=== PATIENT | female | born 1960 | race Caucasian/White ===

== ENCOUNTER 2017-04-03 14:29 | Emergency (ER) | payer OTHER ==
[~2017-04-03] VITALS: Ht 160 cm; Wt 90.7 kg
--- OUTSIDE RECORDS SUMMARY | ~2017-04-03 | XMS ---
Demographics + + + | Address | [address] | | | [place] [address] | + + + | Preferred Language | Unknown | + + + | Marital Status | Unknown | + + + | Moravian Affiliation | Unknown | + + + | Race | Unknown | + + + | Ethnic Group | Unknown | + + + Author + + + | Author | [facility] | + + + | Organization | [facility] | + + + | Address | [address] | | | [place] [address] | + + + | Phone | | + + + Care Team Providers + + + + | Care Carpet Loom Fixer Name | Role | Phone | + + + + Unavailable | Unavailable | + + + + PROBLEMS + + + + + + + + | Type | Condition | ICD9-CM | [id number] | Onset | Condition | SNOMED | | | | Code | Code | Dates | Status | Code | + + + + + + + + | Assessment | COPD | | J44.9 | 02 October, | Active | [id number] | | | (chronic | | | 2016 | | | | | obstructiv | | | | | | | | e | | | | | | | | pulmonary | | | | | | | | disease) | | | | | | + + + + + + + + | Assessment | DDD | | M51.36 | 02 October, | Active | [id number] | | | (degenerat | | | 2016 | | | | | edis disc | | | | | | | | disease), | | | | | | | | lumbar | | | | | | + + + + + + + + ALLERGIES + + + + +--------+ | Substance | Reaction | Event Type | Date | Status | + + + + +--------+ | codine | hallucinations, | Non Drug | September, | Active | | | hives | Allergy | | | + + + + +--------+ | vicodin | hives and | Non Drug | September, | Active | | | vomiting | Allergy | | | + + + + +--------+ SOCIAL HISTORY No smoking Hx information available PLAN OF CARE VITAL SIGNS + + + + | Height | 64.5 in | 2016-10-02 | + + + + | Weight | 212.0 lbs | 2016-10-02 | + + + + | BMI | 35.82 kg/m2 | 2016-10-02 | + + + + | Heart Rate | 98 /min | 2016-10-02 | + + + + | Blood pressure systolic | 186 mm Hg | 2016-10-02 | + + + + | Blood pressure diastolic | 105 mm Hg | 2016-10-02 | + + + + MEDICATIONS + + + + + + + +--------+ | Medicati | Instruct | Dosage | Frequenc | Start | End Date | Duration | Status | | on | ions | | y | Date | | | | + + + + + + + +--------+ | Albutero | Inhalati | 1-2 | | 07 May, | | 30 | Active | | l | on every | puffs as | | 2012 | | | | | Sulfate | 4-6 hrs | needed | | | | | | | HFA 108 | | | | | | | | | (90 | | | | | | | | | Base) | | | | | | | | | MCG/ACT | | | | | | | | + + + + + + + +--------+ | Flexeril | Orally | 1 tablet | 8h | | | 30 | Active | | 10MG | Three | | | | | | | | | times a | | | | | | | | | day | | | | | | | + + + + + + + +--------+ | Clonidin | | TAKE ONE | | | | 30 | Active | | e HCl | | TABLET | | | | | | | 0.2MG | | BY MOUTH | | | | | | | | | ONCE | | | | | | | | | DAILY AT | | | | | | | | | BEDTIME | | | | | | | | | FOR 30 | | | | | | | | | DAYS | | | | | | + + + + + + + +--------+ | Hyzaar | Orally | 1 tablet | 24h | | | 30 days | Active | | 100-25 | once a | | | | | | | | MG | day | | | | | | | + + + + + + + +--------+ | Motrin | Orally | 2-3 | | | | | Active | | IB 200 | Prn | tablets | | | | | | | MG | | | | | | | | + + + + + + + +--------+ | Ventolin | | INHALE | | | | 30 | Active | | HFA | | TWO | | | | | | | 108MCG/A | | PUFFS BY | | | | | | | | | MOUTH | | | | | | | | | EVERY 4 | | | | | | | | | HOURS | | | | | | | | | NEEDED | | | | | | + + + + + + + +--------+ | Losartan | | TAKE ONE | | | | 30 | Active | | | | TABLET | | | | | | | Potassiu | | BY MOUTH | | | | | | | m-HCTZ | | ONCE | | | | | | | 100-25 | | DAILY | | | | | | + + + + + + + +--------+ | Mobic 15 | Orally | 1 tablet | 24h | 17 September, | 13 Nov, | 30 | Active | | MG | Once a | | | 2017 | 2017 | day(s) | | | | day | | | | | | | + + + + + + + +--------+ | Albutero | | USE 0.5 | | | | 20 | Active | | l | | ML'S IN | | | | | | | Sulfate | | NEBULIZE | | | | | | | 0.5% | | R EVERY | | | | | | | | | 4 HOURS | | | | | | | | | | | | | | | | | | NEEDED | | | | | | + + + + + + + +--------+ | GlyBURID | | TAKE TWO | | | | 30 | Active | | E 5MG | | TABLETS | | | | | | | | | BY | | | | | | | | | MOUTH | | | | | | | | | TWICE | | | | | | | | | DAILY | | | | | | + + + + + + + +--------+ | OneTouch | | USE ONE | | | | 30 | Active | | Ultra | | EVERY | | | | | | | Blue | | DAY | | | | | | + + + + + + + +--------+ | OneTouch | | as | 24h | 11 Jul, | | 30 | Active | | Delica | | directed | | 2015 | | day(s) | | | Lancets | | | | | | | | | . | | | | | | | | + + + + + + + +--------+ RESULTS No Results PROCEDURES + + + + + | Procedure | Date Ordered | Related Diagnosis | Body Site | + + + + + | Est Level III | October 02, 2016 | | | | Intermediate | | | | + + + + + IMMUNIZATIONS No Known Immunizations"
--- OUTSIDE RECORDS SUMMARY | ~2017-04-03 | XMS ---
Demographics + + + | Address | [address] | | | [place] [address] | + + + | Preferred Language | Unknown | + + + | Marital Status | Unknown | + + + | Hinduism Affiliation | Unknown | + + + | Race | Unknown | + + + | Ethnic Group | Unknown | + + + Author + + + | Author | [facility] | + + + | Organization | [facility] | + + + | Address | [address] | | | [place] [address] | + + + | Phone | | + + + Care Team Providers + + + + | Care Line Maintainer Section Name | Role | Phone | + + + + Unavailable | Unavailable | + + + + PROBLEMS Unknown Problems ALLERGIES Unknown Allergies SOCIAL HISTORY No smoking Hx information available PLAN OF CARE VITAL SIGNS MEDICATIONS Unknown Medications RESULTS No Results PROCEDURES No Known procedures IMMUNIZATIONS No Known Immunizations"
--- OUTSIDE RECORDS SUMMARY | ~2017-04-03 | XMS ---
Demographics + + + | Address | [address] | | | [place] [address] | + + + | Preferred Language | Unknown | + + + | Marital Status | Unknown | + + + | Anabaptism Affiliation | Unknown | + + + | Race | Unknown | + + + | Ethnic Group | Unknown | + + + Author + + + | Author | [facility] | + + + | Organization | [facility] | + + + | Address | [address] | | | [place] [address] | + + + | Phone | | + + + Care Team Providers + + + + | Care Principal Network Engineer Name | Role | Phone | + + + + Unavailable | Unavailable | + + + + PROBLEMS Unknown Problems ALLERGIES Unknown Allergies SOCIAL HISTORY No smoking Hx information available PLAN OF CARE VITAL SIGNS MEDICATIONS Unknown Medications RESULTS No Results PROCEDURES No Known procedures IMMUNIZATIONS No Known Immunizations"
[~2017-04-03 14:29] MED LIST: ADVAIR 100-501 EACH IH; AEROECLIPSE II1 EACH MC; ALBUTEROL S5 MG/1 ML INH; CLONIDINE HCL0.1 MG PO; COZAAR50 MG; CYCLOBENZAPRINE10 MG; GLYBURIDE2.5 MG; IBUPROFEN400 MG PO; PERCOCET 5-3251 EACH PO; PREDNISONE10 MG PO; VENTOLIN HFA18 GM
[2017-04-03] MEDS ORDERED: MELOXICAM7.5 MG PO (14:51)
[2017-04-03] MEDS ORDERED: KETOROLAC TROME10 MG PO (15:00)
[2017-04-03] MEDS ORDERED: KEFLEX500 MG PO (15:00)
[2017-04-03] MEDS ORDERED: AMBIEN10 MG PO (15:05)
== END 2017-04-03 15:20 | disposition home or self-care (01) ==
LOC: ED 14:29
DX: E11.621 Type 2 diabetes mellitus with foot ulcer (principal); L97.519 Non-pressure chronic ulcer of other part of right foot with unspecified severity; M54.30 Sciatica, unspecified side; I10 Essential (primary) hypertension; Z87.891 Personal history of nicotine dependence; Z98.51 Tubal ligation status; Z88.5 Allergy status to narcotic agent; Z79.899 Other long term (current) drug therapy
CPT/HCPCS: 99283

== ENCOUNTER 2024-09-29 20:46 | Emergency (ER) | payer OTHER | END 2024-09-30 01:08 | disposition home or self-care (01) | LOC: ED 20:46 | DX: N39.0 Urinary tract infection, site not specified (principal); I10 Essential (primary) hypertension; E11.9 Type 2 diabetes mellitus without complications; Z79.899 Other long term (current) drug therapy; Z88.5 Allergy status to narcotic agent; Z88.1 Allergy status to other antibiotic agents; Z87.891 Personal history of nicotine dependence ==

== ENCOUNTER 2024-11-14 14:00 | Inpatient (IN) | payer OTHER ==
[~2024-11-14] VITALS: Ht 160 cm; Wt 102.0 kg
[~2024-11-14 14:00] MED LIST changes: +ADVIL200 MG PO; +AMBIEN10 MG PO; +CEPHALEXIN500 M1 PO; -CYCLOBENZAPRINE10 MG; +CYCLOBENZAPRINE10 MG PO; -IBUPROFEN400 MG PO; +KEFLEX500 MG PO; +KETOROLAC TROME10 MG PO; +MELOXICAM7.5 MG PO; -VENTOLIN HFA18 GM; +VENTOLIN HFA18 GM INH
[2024-11-14 14:45] LABS: BASOPHILS 0.6 % (0.1-1.2); EOSINOPHILS 1.7 % (0.7-5.8); LYMPHOCYTES 15.3 % (19.3-51.7); MCH 33.9 PG (25.6-32.2); MCHC 34.5 g/dL (32.2-35.5); MCV 98.1 fL (79.4-94.8); MONOCYTES 8.7 % (4.7-12.5); NEUTROPHILS 73.5 % (34.0-71.1); RBC 3.72 M/uL (3.93-5.22)
[2024-11-14 15:03] LABS: ALT (SGPT) 79.0 U/L (14-59); AST (SGOT) 183.0 U/L (15-37); GLOMERULAR FILTRATION RATE,EST 63.0 mL/min (>60); PROTEIN, TOTAL 8.4 g/dL (6.4-8.2); UREA NITROGEN 9.0 mg/dL (7-18)
[2024-11-14 17:10] LABS: INR 1.07 (0.80-1.30); PROTIME 13.5 Sec (11.2-14.2)
[2024-11-14] MEDS ORDERED: IBUPROFEN 600 MG TAB PO ONE (17:15)
[2024-11-14] MEDS ORDERED: HYDROmorphone HCL 1 MG/ML SYR IV ONE (17:45)
[2024-11-14] MEDS ORDERED: LABETALOL HCL 20 MG/4 ML VIAL IV PRN (18:00)
[2024-11-14] MEDS ORDERED: DEXTROSE 50% 50 ML SYR IV PRN ×2 (18:00)
[2024-11-14] MEDS ORDERED: CYCLOBENZAPRINE HCL 10 MG TAB PO PRN (18:00)
[2024-11-14] MEDS ORDERED: DEXTROSE 5% 1,000 ML IV PRN (18:00)
[2024-11-14] MEDS ORDERED: ACETAMINOPHEN 325 MG TAB PO PRN (18:00)
[2024-11-14] MEDS ORDERED: GLUCAGON,HUMAN RECOMBINANT 1 MG/ML VIAL SUB-Q PRN (18:00)
[2024-11-14] MEDS ORDERED: IBLOOD GLUCOSE TEST STRIP 1 EA TEST XX PRN (18:00)
[2024-11-14] MEDS ORDERED: ALBUTEROL SULFATE 0.083% 3 ML VIAL INH PRN (18:00)
[2024-11-14 18:42] LABS: BLOOD/HGB, URINE NEGATIVE (Negative); KETONE, URINE SMALL (Negative); LEUK ESTERASE, URINE NEGATIVE (negative); NITRITE, URINE NEGATIVE (negative)
[2024-11-14 18:56] LABS: AMPHETAMINES, URINE NEGATIVE (NEGATIVE); BARBITURATES, URINE NEGATIVE (NEGATIVE); BENZODIAZEPINE, URINE NEGATIVE (NEGATIVE); CANNABINOID, URINE POSITIVE (NEGATIVE); COCAINE, URINE NEGATIVE (NEGATIVE); ECSTASY, URINE NEGATIVE (NEGATIVE); FENTANYL, URINE NEGATIVE (NEGATIVE); METHADONE, URINE NEGATIVE (NEGATIVE); OPIATES, URINE NEGATIVE (NEGATIVE); OXYCODONE, URINE NEGATIVE (NEGATIVE); PHENCYCLIDINE, URINE NEGATIVE (NEGATIVE)
[2024-11-14 18:58] VITALS: BP 166/79
[2024-11-14 19:03] LABS: BACTERIA, URINE RARE /hpf (negative); CASTS, URINE HYALINE 1+ \\lpf; CRYSTALS, URINE NONE SEEN (0-1+); EPITHELIAL CELLS, URINE SQUAMOUS 3+ /lpf (0-1+); REFLEX CULTURE, URINE No (No)
[2024-11-14] MEDS ORDERED: FOLIC ACID 1 MG/0.2 ML ML IV SCH (19:32)
--- NOTE | 2024-11-14 19:33 | NUR ---
ALERT AND ORIENTED TO ALL, COOPERATIVE WITH ADMIT QUESTIONS AND ASSESSMENTS. ABD DISTENTION ASCITIC FIRM, DENITA, LBM 11/14. EDEMA TO LE SPECIALLY R MORE THAN L. SL LAC PATENT
[2024-11-14] MEDS ORDERED: LIDOCAINE HCL 4% 1 EACH PATCH TD SCH (19:38)
[2024-11-14] MEDS ORDERED: LORazepam 2 MG/ML VIAL IV/IM PRN (19:45)
[2024-11-14] MEDS ORDERED: INSULIN LISPRO 100 UNIT/ML ML SUB-Q SCH (21:00)
[2024-11-14] MEDS ORDERED: LIDOCAINE PATCH REMOVAL 1 EA TD SCH (21:00)
[2024-11-14] MEDS ORDERED: LOSARTAN POTASSIUM 50 MG TAB PO SCH (21:00)
[2024-11-14] MEDS ORDERED: GABAPENTIN 300 MG CAP PO SCH (21:00)
[2024-11-14] MEDS ORDERED: MELATONIN 3 MG TAB PO PRN (21:00)
[2024-11-14] MEDS ORDERED: IBLOOD GLUCOSE TEST STRIP 1 EA TEST VI SCH (21:00)
--- NOTE | 2024-11-14 21:46 | NUR ---
Pt awake, watching tv. Lidoderm patch to mid back. Up to BRp with 1PA?Cane, unsteady weak R leg. declined waker. Back to bed. Tolerated fair, Tardive Diskenesis s/sx present. Denies having been on antipsychotics in the past or meth use. Bed alarm in place.
[2024-11-14 22:35] VITALS: BP 162/80
[2024-11-15] VITALS (10 sets, daily range): BP systolic 110–166; BP diastolic 61–77
--- NOTE | 2024-11-15 00:10 | NUR ---
was medicated earlier with Melatonin per c/o insomnia and Flexeril per c/o back spasms. sitting edge of bed, NPO since midnight. oral swabs at bedside
--- NOTE | 2024-11-15 00:15 | NUR ---
ASSISTED PATIENT BACK TO LAYING DOWN IN BED. ROOM LIGHTS OFF. BED ALARM ACTIVATED FOR SAFETY. CALL LIGHT WITHIN REACH.
--- NOTE | 2024-11-15 03:02 | NUR ---
resting, eyes closed, no s/sx distress. Bed alarm in place
--- NOTE | 2024-11-15 03:56 | NUR ---
Used call light, on room air. Up to BRP w 1 PA/FWW, voided, dark yellow urine, back to bed, toleratd fair. c/o back and L leg pain. Medicated with Tylenol. repositions self in bed. NPO, does own oral care with oral swabs. Cooperative with assessment. abd distended firm, slight skin jaundiced presenet. CIWA 2
[2024-11-15 05:39] LABS: BASOPHILS 0.5 % (0.1-1.2); EOSINOPHILS 3.3 % (0.7-5.8); LYMPHOCYTES 19.5 % (19.3-51.7); MCH 34.0 PG (25.6-32.2); MCHC 35.4 g/dL (32.2-35.5); MCV 96.0 fL (79.4-94.8); MONOCYTES 12.0 % (4.7-12.5); NEUTROPHILS 64.5 % (34.0-71.1); RBC 3.24 M/uL (3.93-5.22)
[2024-11-15 05:55] LABS: ALT (SGPT) 55.0 U/L (14-59); AST (SGOT) 126.0 U/L (15-37); GLOMERULAR FILTRATION RATE,EST 82.0 mL/min (>60); PHOSPHORUS, INORGANIC 2.6 mg/dL (2.5-4.9); PROTEIN, TOTAL 6.7 g/dL (6.4-8.2); UREA NITROGEN 13.0 mg/dL (7-18)
--- NOTE | 2024-11-15 06:09 | NUR ---
Resting, eyes closed, no s/sx distres, repositions self in bed. cooperative with vitals and assessments, up to brp, 1PA/fww, teaching r/t FWW use and fall precautions given semi compliant.
[2024-11-15] MEDS ORDERED: THIAMINE HCL 200 MG/2 ML VIAL IV SCH ×2 (08:00→11:55)
[2024-11-15] MEDS ORDERED: MULTIVITAMINS THERAPEUTIC 1 EA TAB PO SCH ×2 (08:00→11:55)
--- NOTE | 2024-11-15 08:00 | NUR ---
PT RESTNG EYES CLOSED AT TIME OF SHIFT REPORT. UP TO TOILET NOW, SBA WITH FWW. PT RETURNS TO BED TO REST EYES CLOSED CURTAINS DRAWN CONTINUES NPO IN ANTICIPATION OF PROCEEDURE LATER
--- NOTE | 2024-11-15 08:55 | NUR ---
PATIENT ASLEEP IN BED WITH BLANKET COVERING HER HEAD.
[2024-11-15] MEDS ORDERED: PANTOPRAZOLE SODIUM 40 MG/10 ML VIAL IV SCH (09:00)
[2024-11-15] MEDS ORDERED: IBUPROFEN 800 MG TAB PO PRN (09:00)
--- NOTE | 2024-11-15 09:10 | NUR ---
UR CLINICAL REVIEW: [facility] [place] FOR LIVER DISEASE WITH [facility] ARTIS MARTINEZ INPT 11/14/24 @ 1756 ORDER MATCHES REG CLINICALS FAXED TO [facility] FOR AUTH REVIEW DISCHARGE TO HOME WHEN STABLE 11/16/24
--- NOTE | 2024-11-15 10:10 | NUR ---
U/S IN WORKING WITH PT SHE IS COOPERATIVE AND QUIET
--- NOTE | 2024-11-15 10:15 | NUR ---
HOURLY ROUNDING. CALL LIGHT HAS BEEN PLACED NEAR PATIENT ROOM HAS BEEN TIDY NO REQUEST FROM PATIENT AT THIS TIME
[2024-11-15] MEDS ORDERED: DILTIAZEM ER180 M1 PO (11:36)
[2024-11-15] MEDS ORDERED: GABAPENTIN300 MG PO (11:36)
[2024-11-15] MEDS ORDERED: GLYBURIDE5 MG PO (11:36)
[2024-11-15] MEDS ORDERED: LOSARTAN POTAS100 MG PO (11:37)
[2024-11-15] MEDS ORDERED: FOLIC ACID 1 MG/0.2 ML ML IV SCH (11:54)
[2024-11-15] MEDS ORDERED: PHARMACY RENAL DOSE ADJUSTMENT 1 DOSE MISC PO SCH (12:00)
--- NOTE | 2024-11-15 12:34 | NUR ---
DRAINING OF ASCITES FLUID WELL TOLERATED PT STATES SHE "FEELS SO MUCH BETTER" EATING NOON MEAL AT THIS TIME DR VILLASENOR IN TO SEE HER
[2024-11-15] MEDS ORDERED: ALBUMIN HUMAN 25% 100 ML BTL IV ONE (12:45)
--- NOTE | 2024-11-15 12:46 | NUR ---
ALERT AND ORIENTED IN ROOM. STATES SHE LIVES IN [facility], [facility]. HAS A CANE SHE USES. SHE DRIVES AT [facility]. SHE HAS NO PCP, STATES SHE IS OPEN TO SEEING KOURTNEY GALICIA AT [facility] IF THEY ACCEPT HER A NEW PATIENT. GETS $300/MONTH IN SNAP BENEFITS. PLANS TO RETURN HOME WHEN MEDICALLY STABLE.
[2024-11-15 12:59] LABS: APPEARANCE, BODY FLUID CLEAR; MONONUCLEAR CELLS, BODY FLUID 92; PMNS, BODY FLUID 8; RBC, BODY FLUID 153; WBC, BODY FLUID 213
[2024-11-15 13:00] LABS: SOURCE, BODY FLUID Ascites
--- NOTE | 2024-11-15 13:01 | NUR ---
MED REC COMPLETE
--- NOTE | 2024-11-15 13:06 | NUR ---
PT EATS 100% OF NOON MEAL CONTINUES RESTING IN BED DENIES NEEDS. PT ONLY C/O IS PAIN IN HER BACK WILL ASK FOR IBUPROFEN
[2024-11-15] MEDS ORDERED: MAGNESIUM OXIDE 400 MG TABLET PO ONE (13:15)
--- NOTE | 2024-11-15 13:37 | NUR ---
PATIENT ASSISTED BACK FROM BATHROOM TO BED AFTER VOIDING 400ML CLAUDIA COLORED URINE. PATIENT WAS A CLOSE 1PERSON ASSIST WITH FWW. ONCE IN BED REQUESTED ALL 4 SIDE RAILS UP. EDUCATION PROVIDED BUT PATIENT REQUEST "IT HELPS ME MOVE IN BED". CALL LIGHT IN REACH. BED EXIT ALARM ON.
--- NOTE | 2024-11-15 15:02 | NUR ---
PATIENT IN BED AT THIS TIME. THIS FURNACE PUNCHER WENT INTO PATIENTS ROOM FOR HOURLY ROUNDS. THIS FURNACE PUNCHER TOOK PATIENT OVER FROM [facility] AT 1445. CALL LIGHT WITHIN REACH, NO FURTHER NEEDS AT THIS TIME.
--- NOTE | 2024-11-15 15:42 | NUR ---
PATIENT IN CHAIR AT THIS TIME. PLATE HANGER CHANGED PATIENTS LINENS AND PATIENT INDEPENDENTLY BRUSHED TEETH. PATIENT WILLING TO DO BED BATH AFTER DINNER. CALL LIGHT WITHIN REACH, NO FURTHER NEEDS AT THIS TIME.
--- NOTE | 2024-11-15 16:16 | NUR ---
PT SITTING UP IN THE CHAIR BRUSHING HER HAIR DENIES DISCOMFORTS OR NEEDS OF
--- NOTE | 2024-11-15 16:33 | NUR ---
HOURLY ROUNDING. PATIENT HAS A BED BATH HAIR SHAMPOO CAP AND NEW SOCKS. BLOOD GLUCOSE HAS BEEN CHECKED AND DOCUMENTED
--- NOTE | 2024-11-15 19:39 | NUR ---
RECEIVED REPORT. CHECKED ON PT. PT RESTING IN BED, REFILLING ICE AND COFFEE. PT HAS NO FURTHER CONCERNS AT THIS TIME. CALL LIGHT WITHIN REACH.
[2024-11-15] MEDS ORDERED: INSULIN GLARGINE-YFGN 100 UNIT/ML ML SUB-Q SCH (21:00)
--- NOTE | 2024-11-15 22:52 | NUR ---
PT RESTING ON HER SIDE. BREATHING EVEN. CALL LIGHT WITHIN REACH.
[2024-11-16] VITALS (8 sets, daily range): BP systolic 127–158; BP diastolic 67–79
--- NOTE | 2024-11-16 01:49 | NUR ---
PT UP DRINKING WATER. PT HAS NO NEEDS AT THIS TIME. CALL LIGHT WITHIN REACH.
--- NOTE | 2024-11-16 03:12 | NUR ---
PT AWAKE AND REQUESTING WATER. PT REPORTS SHE IS FEELING MUCH BETTER SINCE THE FLUID WAS REMOVED FROM HER ABDOMEN 11/15/24. PT HAS NO FURTHER NEEDS AT THIS TIME. CALL LIGHT WITHIN REACH.
[2024-11-16 05:30] LABS: BASOPHILS 0.2 % (0.1-1.2); EOSINOPHILS 1.3 % (0.7-5.8); LYMPHOCYTES 8.8 % (19.3-51.7); MCH 33.8 PG (25.6-32.2); MCHC 33.7 g/dL (32.2-35.5); MCV 100.3 fL (79.4-94.8); MONOCYTES 7.3 % (4.7-12.5); NEUTROPHILS 82.0 % (34.0-71.1); RBC 3.49 M/uL (3.93-5.22)
[2024-11-16 05:50] LABS: ALT (SGPT) 47.0 U/L (14-59); AST (SGOT) 110.0 U/L (15-37); GLOMERULAR FILTRATION RATE,EST 85.0 mL/min (>60); PROTEIN, TOTAL 7.1 g/dL (6.4-8.2); UREA NITROGEN 14.0 mg/dL (7-18)
--- NOTE | 2024-11-16 06:09 | NUR ---
PT SITTING UP IN BED. PT DENIES SOB, DENIES PAIN. GAUZE (PLACED AT PATIENT'S REQUEST) OVER PUNCTURE SITE HAS A SCANT SPOT OF BLOOD AND INTACT. PT ORDERED BREAKFAST. PT HAS NO FURTHER NEEDS AT THIS TIME. CALL LIGHT WITHIN REACH.
--- NOTE | 2024-11-16 07:33 | NUR ---
PT AWAKE WATCHING TV AT TIME OF SHIFT REPORT DOES NOT WANT BLINDS OPENED. COFEE AND H20 PROVIDED PT DENIES DISCOMFORTS OR OTHER NEEDS. CALL LIGHT IN REACH
[2024-11-16 07:54] LABS: HEPATITIS B SURFACE ANTIBODY 17.32 IU/L (())
[2024-11-16] MEDS ORDERED: MAGNESIUM SULFATE 2 GM/50 ML BAG IV ONE (08:00)
[2024-11-16] MEDS ORDERED: FOLIC ACID 1 MG TAB PO SCH (08:00)
[2024-11-16] MEDS ORDERED: THIAMINE HCL 100 MG TAB PO SCH (08:00)
--- NOTE | 2024-11-16 08:15 | NUR ---
HOURLY ROUNDING. PATIENT WAS GIVEN A HOT FACE TOWEL TO WASH FACE. PATIENT REFUSED EATING BREAKFEAST IN RECLINER CHAIR. SHE MENTIIONED NOT FEELING LIKE GETTING UP IN THE CHAIR YET. BOARD UPDATED AND CALL LIGHT HAS BEEN PLACED WITHIN REACH
[2024-11-16 08:35] LABS: HBV CORE ANTIBODIES,TOTAL Negative (Negative); HEPATITIS B CORE ANTIBODY,IGM Negative (Negative)
[2024-11-16] MEDS ORDERED: SPIRONOLACTONE 100 MG TAB PO SCH (09:00)
[2024-11-16] MEDS ORDERED: FUROSEMIDE 40 MG TAB PO SCH (09:00)
[2024-11-16] MEDS ORDERED: PANTOPRAZOLE SODIUM 40 MG TABEC PO SCH (09:00)
[2024-11-16] MEDS ORDERED: LOSARTAN POTASSIUM 100 MG TAB PO SCH (09:00)
[2024-11-16 09:43] LABS: TOTAL PROTEIN FLUID SOURCE Ascites fluid (())
--- NOTE | 2024-11-16 09:47 | NUR ---
RESTING IN BED WITH EYES CLOSED. ALLOWED TO REST. DID SCHEDULE PCP APPOINTMENT WITH KOURTNEY GALICIA PA-C AT [facility] FOR 11/24/2024 @ 2:00 PM
--- NOTE | 2024-11-16 10:12 | NUR ---
PT EATS 100% OF MORNING MEAL DOES SELF CARES IN THE BATHROOM. PT UP IN THE ROOM INDEPENDENTLY AGREES TO USE THE FWW FOR SAFETY, THOUGH APPEARS SHE IS STEADY ENOUGH TO GO WITHOUT HAVEING IMPROVED SINCE ADMISSION. DR VILLASENOR IN TO SEE HER. LIVER DISEASE AND FUNCTION DISCUSSED AT LENGTH PT PARTIALLY UNDERSTANDS DOESN'T SEEM TO REALIZE THE GRAVITY OF LIVER FAILURE OVERALL. RESTING IN BED NOW INTENDS TO NAP FOR AWHILE
[2024-11-16 10:56] LABS: INR 1.29 (0.80-1.30); PROTIME 15.6 Sec (11.2-14.2)
[2024-11-16 11:27] LABS: HEPATITIS C AB CIA INTERP High Pos (Negative); HEPATITIS C ANTIBODY CIA INDEX >11.00 IV (())
--- NOTE | 2024-11-16 11:33 | NUR ---
PT RESTING EYES CLOSED
--- NOTE | 2024-11-16 12:21 | NUR ---
PT HAD A GOOD SOUND NAP AWAKE NOW UP ON EDGE OF BED FOR NOON MEAL. BLINDS PARTIALLY OPENED.
[2024-11-16 13:16] LABS: ALBUMIN,BODY FLUID 653 mg/dL (()); SR SOURCE ASCITES (())
--- NOTE | 2024-11-16 13:23 | NUR ---
HOURLY ROUNDING. PATIENT IS SITTING AT THE EDGE OF THE BED, SHE REFUSED SITTING IN RECLINER. CALL LIGHT HAS BEEN PLACED WITHIN REACH, NO REQUEST FROM PATIENT AT THIS TIME
--- NOTE | 2024-11-16 13:23 | NUR ---
DR MENDEZOO IN TO DISCUSS PT LIVER DISEASE WITH HER AND PLAN GOING FORWARD. UNDERSTANDING VERBALIZED
--- NOTE | 2024-11-16 16:09 | NUR ---
HOURLY ROUNDING. PATIENT APPEARS TO BE FEELING BETTER AFTER A QUICK NAP. BLOOD GLUCOSE HAS BEEN CHECKED AND DOCUMENTED. PATIENT REQUEST ICE, NO URTHER REQUEST FROM PATIENT CALL LIGHT HAS BEEN PLACED WITHIN REACH
--- NOTE | 2024-11-16 16:24 | NUR ---
CARTER VALENTINO TOOK OVER PATIENT FROM CARTER BOLES AT 1625. CARTER DID HOURLY ROUNDS ON PATIENT, NO FRUTHER NEEDS AT THIS TIME.
--- NOTE | 2024-11-16 17:00 | NUR ---
QUALITY INTERN TOOK SUGAR AT 1608 OTHER QUALITY INTERN TOOK CBG AT 1655. DOCUMENTED PRN. INSULIN AMOUNT IS TO BE ADMINISTERED BASED ON MOST RECENT CBG.
--- NOTE | 2024-11-16 17:09 | NUR ---
PT HAS BEEN UP AND AROUND HER ROOM INDEPENDENTLY THIS SHIFT SHE APPEARS STEADY. SITTING IN CHAIR NOW READY FOR EVENING MEAL. FRESH H20 PROVIDED PER REQUEST
--- NOTE | 2024-11-16 17:45 | NUR ---
PT STATES SHE IS ANGRY ABOUT HER EVENING MEAL, NOT "GETTING WHAT SHE WANTS" OFFERED OTHER ITEMS PT DENIES OFFERS. STATES SHE IS LEAVING TONIGHT AND WILL GET WHAT SHE WANTS. ENCOURAGED PT TO STAY, VISITED FOR SOME TIME, GOT PT FRESH COFFEE SHE SETTLES SOMEWHAT. ENCOURAGED HER TO CALL FOR ANY NEEDS OR REQUESTS
--- NOTE | 2024-11-16 19:01 | NUR ---
pt sitting in chair in room, pt awake and alert. pt frustrated with dinner SELECTION SENT TO HER - DID NOT EAT. PT'S NURSE GOT PT FRESH COFFEE. PT HAS FRESH ICE WATER, AND CALL LIGHT WITHIN REACH. PT NEEDING NOTHING ELSE AT THIS TIME.
--- NOTE | 2024-11-16 19:21 | NUR ---
RECEIVED REPORT. PT SITTING IN HER CHAIR. PT HAS NO NEEDS AT THIS TIME. CALL LIGHT WITH IN REACH.
[2024-11-16] MEDS ORDERED: INSULIN GLARGINE-YFGN 100 UNIT/ML ML SUB-Q SCH (21:00)
--- NOTE | 2024-11-16 22:15 | NUR ---
PT SITTING ON BED. ASSESSMENT COMPLETE. PT HAS NO NEEDS AT THIS TIME. CALL LIGHT WITH IN REACH.
--- NOTE | 2024-11-16 23:59 | NUR ---
PT RESTING ON HER SIDE. BREATHING EVEN. CALL LIGHT WITH IN REACH.
--- NOTE | 2024-11-17 01:55 | NUR ---
PT RESTING ON HER SIDE WITH EYES CLOSED. BREATHING EVEN. CALL LIGHT WITH IN REACH.
--- NOTE | 2024-11-17 02:37 | NUR ---
ANSWERED CALL LIGHT. PT WAS UP TO BATHROOM. PT WAS DIAPHORETIC AND REQUESTED A NEW GOWN AND PILLOWCASE. PT BACK IN BED. NO FURTHER NEEDS AT THIS TIME. CALL LIGHT WITH IN REACH.
--- NOTE | 2024-11-17 03:40 | NUR ---
PT LAYING ON HER SIDE, RESTING WITH EYES CLOSED. BREATHING EVEN. CALL LIGHT WITH IN REACH.
[2024-11-17 05:13] VITALS: BP 132/57
[2024-11-17 05:23] LABS: BASOPHILS 0.5 % (0.1-1.2); EOSINOPHILS 1.6 % (0.7-5.8); LYMPHOCYTES 17.7 % (19.3-51.7); MCH 33.8 PG (25.6-32.2); MCHC 34.7 g/dL (32.2-35.5); MCV 97.5 fL (79.4-94.8); MONOCYTES 9.3 % (4.7-12.5); NEUTROPHILS 70.4 % (34.0-71.1); RBC 3.55 M/uL (3.93-5.22)
[2024-11-17 05:24] VITALS: BP 132/57
--- NOTE | 2024-11-17 05:25 | NUR ---
PT AWAKE IN BED, LAB INTO TO DRAW BLOOD. FOCUSED ASSESSMENT DONE. PT DENIES SOB. PT GIVEN COFFEE AND ICE REQUESTED. NO FURTHER NEEDS AT THIS TIME. CALL LIGHT WITHIN REACH.
[2024-11-17 05:39] LABS: ALT (SGPT) 41.0 U/L (14-59); AST (SGOT) 90.0 U/L (15-37); GLOMERULAR FILTRATION RATE,EST 73.0 mL/min (>60); PROTEIN, TOTAL 6.9 g/dL (6.4-8.2); UREA NITROGEN 14.0 mg/dL (7-18)
[2024-11-17 05:45] LABS: INR 1.21 (0.80-1.30); PROTIME 14.9 Sec (11.2-14.2)
--- NOTE | 2024-11-17 07:25 | NUR ---
PT RESTING IN BED WATCHING TV. REPORT RECEIVED FROM EMEKA MORALES.
[2024-11-17] MEDS ORDERED: MAGNESIUM SULFATE 2 GM/50 ML BAG IV SCH (07:45)
[2024-11-17] MEDS ORDERED: POTASSIUM CHLORIDE 10 MEQ TABCR PO ONE (08:30)
[2024-11-17 10:23] VITALS: BP 130/74
--- NOTE | 2024-11-17 10:25 | NUR ---
DR LUNDBERGUNG IN TO SEE PT AND DISCUSS PLAN OF CARE.
[2024-11-17] MEDS ORDERED: IPRAT-ALBUT 0.5-3 ML INH (10:49)
[2024-11-17] MEDS ORDERED: VENTOLIN HFA18 GM INH (10:49)
[2024-11-17] MEDS ORDERED: DILTIAZEM ER180 M1 PO (10:50)
[2024-11-17] MEDS ORDERED: SPIRONOLACTONE100 MG PO (10:50)
[2024-11-17] MEDS ORDERED: GABAPENTIN300 MG PO (10:51)
[2024-11-17] MEDS ORDERED: GLYBURIDE5 MG PO (10:51)
[2024-11-17] MEDS ORDERED: FUROSEMIDE40 MG PO (10:51)
[2024-11-17] MEDS ORDERED: MELATONIN3 MG PO (10:52)
--- NOTE | 2024-11-17 11:08 | NUR ---
PT NOT AVAILABLE FOR VISIT. PROVIDED PRAYER.
[2024-11-17 11:19] VITALS: BP 130/74
--- NOTE | 2024-11-17 11:23 | NUR ---
DISCUSSED DC. PLANNING TO GO HOME TODAY. UPDATED ABOUT PCP APPT SCHEDULED AND INFORMED HER THE APPOINTMENT WILL BE ON DC INSTRUCTIONS. VERBALIZES UNDERSTANDING. NO FURTHER CM NEEDS.
[2024-11-17 11:32] VITALS: BP 148/71
[2024-11-17 12:39] LABS: HCV QNT BY NAAT (IU/ML) 3350000 IU/mL (()); HCV QNT BY NAAT (LOG IU/ML) 6.53 (()); HCV QNT BY NAAT INTERP Detected (Not Detected)
[2024-11-17 12:40] LABS: HCV QNT BY NAAT (IU/ML) 4580000 IU/mL (()); HCV QNT BY NAAT (LOG IU/ML) 6.66 (()); HCV QNT BY NAAT INTERP Detected (Not Detected)
[2024-11-18 10:54] LABS: HIV 1,2 COMBO ANTIGEN/ANTIBODY Negative (Negative)
== END 2024-11-17 11:45 | disposition home or self-care (01) | DRG 433 ==
LOC: ED 14:00 → MS 17:56
PROVIDERS: Emergency Medicine; Student in an Organized Health Care Education/Training Program; ADMIT Student in an Organized Health Care Education/Training Program; ATTEND Student in an Organized Health Care Education/Training Program
PROC: 0W9G3ZZ Drainage of Peritoneal Cavity, Percutaneous Approach (ICD-10-PCS; principal; 2024-11-15)
DX: K74.60 Unspecified cirrhosis of liver (principal); K76.6 Portal hypertension; I10 Essential (primary) hypertension; J45.909 Unspecified asthma, uncomplicated; E11.40 Type 2 diabetes mellitus with diabetic neuropathy, unspecified; G89.29 Other chronic pain; M54.9 Dorsalgia, unspecified; Z66 Do not resuscitate; F10.10 Alcohol abuse, uncomplicated; F12.90 Cannabis use, unspecified, uncomplicated; Z87.891 Personal history of nicotine dependence; Z79.1 Long term (current) use of non-steroidal anti-inflammatories (NSAID); Z79.891 Long term (current) use of opiate analgesic; Z79.899 Other long term (current) drug therapy
CPT/HCPCS: 36415; 74176; 76705; 80053; 80307; 81001; 82040; 83036; 83690; 83735; 84100; 84157; 85025; 85610; 86704; 86705; 86706; 86803; 87340; 87522; 89051; 93306; 93308; 94640; 94760; A9270; J1171; J1815; J2405; J2470; J3411; J3475; P9047

== ENCOUNTER 2024-12-06 19:28 | Emergency (ER) | payer OTHER ==
[~2024-12-06] VITALS: Ht 160 cm; Wt 93.3 kg
[~2024-12-06 19:28] MED LIST changes: +DILTIAZEM ER180 M1 PO; +FUROSEMIDE40 MG PO; +GABAPENTIN300 MG PO; +GLYBURIDE5 MG PO; +IPRAT-ALBUT 0.5-3 ML INH; +LOSARTAN POTAS100 MG PO; +MELATONIN3 MG PO; +SPIRONOLACTONE100 MG PO
--- OUTSIDE RECORDS SUMMARY | 2024-12-06 19:35 | XMS ---
PreManage Notification: FERNANDO SINGER Security Plier Worker Events No recent Security Events currently on file CRITERIA MET - [facility] - 2 Visits in 30 Days CARE PROVIDERS -, [facility] Dentist: Rotary Lithographic Press Operator [facility] PHONE: [phone] ANI PRIMARY Clinic/Center: Primary Care [facility] PHONE: [phone] [place] has no Care Guidelines for this patient. EWendy VISIT COUNT (12 MO.) [address] [place] [address] TOTAL 3 NOTE: Visits indicate total known visits. ED/UCC VISIT TRACKING (12 MO.) 12/06/2024 19:28 [facility] [address] [place] TYPE: Emergency COMPLAINT: - ABNORMAL LAB RESULT 11/14/2024 14:02 [facility] [place] TYPE: Emergency COMPLAINT: - R FOOT/CALF, STOMACH SWELLING, BACK PAIN 09/29/2024 20:46 [facility] [place] TYPE: Emergency COMPLAINT: - POSS UTI DIAGNOSES: - Allergy status to narcotic agent - Allergy status to other antibiotic agents - Essential (primary) hypertension - Nausea with vomiting, unspecified - Other terminal manager (current) drug therapy - Personal history of nicotine dependence - Type 2 diabetes mellitus without complications - Urinary tract infection, site not specified INPATIENT VISIT TRACKING (12 MO.) 11/14/2024 17:[address] [facility] [place] TYPE: Medical Surgical COMPLAINT: - LARGE VOLUME ASCITES DIAGNOSES: - Abdominal distension (gaseous) - Alcohol abuse, uncomplicated - Alcohol abuse, uncomplicated - Alcoholic cirrhosis of liver with ascites - Cannabis use, unspecified, uncomplicated - Cannabis use, unspecified, uncomplicated - Do not resuscitate - Do not resuscitate - Dorsalgia, unspecified - Dorsalgia, unspecified - Essential (primary) hypertension - Essential (primary) hypertension - penitentiary (current) use of non-steroidal anti-inflammatories (NSAID) - penitentiary (current) use of non-steroidal anti-inflammatories (NSAID) - penitentiary (current) use of opiate analgesic - penitentiary (current) use of opiate analgesic - Other ascites - Other chronic pain - Other chronic pain - Other retirement (current) drug therapy - Other retirement (current) drug therapy - Personal history of nicotine dependence - Personal history of nicotine dependence - Portal hypertension - Portal hypertension - Type 2 diabetes mellitus with diabetic neuropathy, unspecified - Type 2 diabetes mellitus with diabetic neuropathy, unspecified - Unspecified asthma, uncomplicated - Unspecified asthma, uncomplicated - Unspecified cirrhosis of liver - Unspecified cirrhosis of liver [email or web address]
[2024-12-06] MEDS ORDERED: CLOTRIMAZOLE45 G1 (19:51)
[2024-12-06 20:16] LABS: BASOPHILS 0.3 % (0.1-1.2); EOSINOPHILS 1.0 % (0.7-5.8); LYMPHOCYTES 11.9 % (19.3-51.7); MCH 33.2 PG (25.6-32.2); MCHC 34.3 g/dL (32.2-35.5); MCV 96.9 fL (79.4-94.8); MONOCYTES 8.1 % (4.7-12.5); NEUTROPHILS 78.5 % (34.0-71.1); RBC 3.55 M/uL (3.93-5.22)
[2024-12-06] MEDS ORDERED: SODIUM CHLORIDE 0.9% 1,000 ML IV SCH (20:30)
[2024-12-06 20:31] LABS: ALT (SGPT) 43.0 U/L (14-59); AST (SGOT) 100.0 U/L (15-37); GLOMERULAR FILTRATION RATE,EST 49.0 mL/min (>60); PROTEIN, TOTAL 8.3 g/dL (6.4-8.2); UREA NITROGEN 17.0 mg/dL (7-18)
[2024-12-06] MEDS ORDERED: Insulin Regular, Human 100 UNIT/ML ML IV ONE (20:45)
[2024-12-06 21:48] VITALS: BP 146/81
== END 2024-12-06 22:00 | disposition home or self-care (01) ==
LOC: ED 19:28
PROVIDERS: Emergency Medicine
DX: E11.65 Type 2 diabetes mellitus with hyperglycemia (principal); I10 Essential (primary) hypertension; Z79.899 Other long term (current) drug therapy; Z88.5 Allergy status to narcotic agent; Z88.8 Allergy status to other drugs, medicaments and biological substances; Z87.891 Personal history of nicotine dependence
CPT/HCPCS: 36415; 80053; 82010; 82800; 85025; 96361; 96374; 99284-25; J1815; J7030

== ENCOUNTER 2024-12-10 13:29 | Emergency (ER) | payer OTHER ==
[~2024-12-10] VITALS: Ht 160 cm; Wt 93.0 kg
[~2024-12-10 13:29] MED LIST changes: +CLOTRIMAZOLE45 G1
--- OUTSIDE RECORDS SUMMARY | 2024-12-10 13:35 | XMS ---
PreManage Notification: FERNANDO SINGER Security Narrow Gauge Brakeman Events No recent Security Events currently on file CRITERIA MET - [facility] - 2 Visits in 30 Days CARE PROVIDERS -, [facility] Dentist: Hair Assistant [facility] PHONE: [phone] ANI PRIMARY Clinic/Center: Primary Care [facility] PHONE: [phone] [place] has no Care Guidelines for this patient. EWendy VISIT COUNT (12 MO.) [address] [place] [address] TOTAL 4 NOTE: Visits indicate total known visits. ED/UCC VISIT TRACKING (12 MO.) 12/10/2024 13:29 [facility] [place] TYPE: Emergency COMPLAINT: - ABDOMINAL PAIN 12/06/2024 19:28 [facility] [place] TYPE: Emergency COMPLAINT: - ABNORMAL LAB RESULT DIAGNOSES: - Allergy status to narcotic agent - Allergy status to other drugs, medicaments and biological substances - Essential (primary) hypertension - Other alf (current) drug therapy - Personal history of nicotine dependence - Type 2 diabetes mellitus with hyperglycemia 11/14/2024 14:02 [facility] [place] TYPE: Emergency COMPLAINT: - R FOOT/CALF, STOMACH SWELLING, BACK PAIN 09/29/2024 20:46 [facility] [place] TYPE: Emergency COMPLAINT: - POSS UTI DIAGNOSES: - Allergy status to narcotic agent - Allergy status to other antibiotic agents - Essential (primary) hypertension - Nausea with vomiting, unspecified - Other alf (current) drug therapy - Personal history of nicotine dependence - Type 2 diabetes mellitus without complications - Urinary tract infection, site not specified INPATIENT VISIT TRACKING (12 MO.) 11/14/2024 17:56 [facility] [place] TYPE: Medical Surgical COMPLAINT: - LARGE VOLUME ASCITES DIAGNOSES: - Abdominal distension (gaseous) - Alcohol abuse, uncomplicated - Alcohol abuse, uncomplicated - Alcoholic cirrhosis of liver with ascites - Cannabis use, unspecified, uncomplicated - Cannabis use, unspecified, uncomplicated - Do not resuscitate - Do not resuscitate - Dorsalgia, unspecified - Dorsalgia, unspecified - Essential (primary) hypertension - Essential (primary) hypertension - alf (current) use of non-steroidal anti-inflammatories (NSAID) - alf (current) use of non-steroidal anti-inflammatories (NSAID) - terminal operations supervisor (current) use of opiate analgesic - alf (current) use of opiate analgesic - Other ascites - Other chronic pain - Other chronic pain - Other petroleum terminal plant operator (current) drug therapy - Other alf (current) drug therapy - Personal history of nicotine dependence - Personal history of nicotine dependence - Portal hypertension - Portal hypertension - Type 2 diabetes mellitus with diabetic neuropathy, unspecified - Type 2 diabetes mellitus with diabetic neuropathy, unspecified - Unspecified asthma, uncomplicated - Unspecified asthma, uncomplicated - Unspecified cirrhosis of liver - Unspecified cirrhosis of liver [email or web address]
[2024-12-10 14:09] LABS: BASOPHILS 0.4 % (0.1-1.2); EOSINOPHILS 2.4 % (0.7-5.8); LYMPHOCYTES 14.2 % (19.3-51.7); MCH 33.4 PG (25.6-32.2); MCHC 34.2 g/dL (32.2-35.5); MCV 97.7 fL (79.4-94.8); MONOCYTES 8.8 % (4.7-12.5); NEUTROPHILS 74.0 % (34.0-71.1); RBC 3.89 M/uL (3.93-5.22)
[2024-12-10 14:20] LABS: INR 1.17 (0.80-1.30); PROTIME 14.2 Sec (11.2-14.2)
[2024-12-10 14:24] LABS: ALT (SGPT) 47.0 U/L (14-59); AST (SGOT) 99.0 U/L (15-37); GLOMERULAR FILTRATION RATE,EST 65.0 mL/min (>60); PROTEIN, TOTAL 8.4 g/dL (6.4-8.2); UREA NITROGEN 12.0 mg/dL (7-18)
[2024-12-10] MEDS ORDERED: ALBUMIN HUMAN 25% 100 ML BTL IV ONE (15:15)
[2024-12-10 16:37] VITALS: BP 163/84
== END 2024-12-10 16:38 | disposition home or self-care (01) ==
LOC: ED 13:29
PROVIDERS: Emergency Medicine
DX: R18.8 Other ascites (principal); E11.9 Type 2 diabetes mellitus without complications; I10 Essential (primary) hypertension; Z79.899 Other long term (current) drug therapy; Z88.5 Allergy status to narcotic agent; Z87.891 Personal history of nicotine dependence
CPT/HCPCS: 36415; 49082; 80053; 85025; 85610; 99284-25; P9047

== ENCOUNTER 2025-01-10 15:05 | Emergency (ER) | payer OTHER ==
[~2025-01-10] VITALS: Ht 160 cm; Wt 93.0 kg
[2025-01-10] MEDS ORDERED: LACTULOSE10 GM/151 PO (15:26)
[2025-01-10 17:25] VITALS: BP 173/79
[2025-01-10 17:42] LABS: APPEARANCE, BODY FLUID CLEAR; PMNS, BODY FLUID 14 %; RBC, BODY FLUID 49 /mm3; WBC, BODY FLUID 269 /mm3
[2025-01-10 17:43] LABS: MONONUCLEAR CELLS, BODY FLUID 86 %; SOURCE, BODY FLUID Ascities
== END 2025-01-10 17:25 | disposition home or self-care (01) ==
LOC: ED 15:05
PROVIDERS: Emergency Medicine
DX: K74.60 Unspecified cirrhosis of liver (principal); R18.8 Other ascites; E11.9 Type 2 diabetes mellitus without complications; I10 Essential (primary) hypertension; Z87.891 Personal history of nicotine dependence; Z88.5 Allergy status to narcotic agent; Z88.8 Allergy status to other drugs, medicaments and biological substances; Z79.899 Other long term (current) drug therapy
CPT/HCPCS: 49083; 87070; 87205; 89051; 99284-25

== ENCOUNTER 2025-02-10 09:32 | Emergency (ER) | payer OTHER ==
[~2025-02-10] VITALS: Ht 160 cm; Wt 109.5 kg
[~2025-02-10 09:32] MED LIST changes: +LACTULOSE10 GM/151 PO
--- OUTSIDE RECORDS SUMMARY | 2025-02-10 09:38 | XMS ---
PreManage Notification: FERNANDO SINGER Security Vegetable Sorter Events No recent Security Events currently on file CRITERIA MET - 6 ED Visits in 6 Months - [facility] - 2 Visits in 30 Days CARE PROVIDERS AUGUSTO BLOOM, Dealer Account Manager/Regulatory Scientist 01/26/2025-Bárbara SPAIN PHONE: [phone] -, [facility] Dentist: Lavender Farm Worker Bárbara Lackeyleton PHONE: [phone] ANI PRIMARY Clinic/Center: [facility] (formerly [facility]3] PHONE: [phone] [facility] has no Care Guidelines for this patient. E.D. VISIT COUNT (12 MO.) 6 [facility] 2 [facility] TOTAL 8 NOTE: Visits indicate total known visits. ED/UCC VISIT TRACKING (12 MO.) 02/10/2025 09:32 [facility] [place] TYPE: Emergency COMPLAINT: - ABDOMINAL PAIN 01/28/2025 19:56 [facility] [place] TYPE: Emergency DIAGNOSES: - Alcoholic cirrhosis of liver with ascites - Generalized abdominal pain - Hyperglycemia, unspecified - Abdominal Pain 01/23/2025 05:51 [facility] [place] TYPE: Emergency DIAGNOSES: - Hyperglycemia, unspecified - Mild intermittent asthma with (acute) exacerbation - Other ascites - shortness of breath 01/10/2025 15:07 [facility] [place] TYPE: Emergency COMPLAINT: - SWELLING DIAGNOSES: - Allergy status to narcotic agent - Allergy status to other drugs, medicaments and biological substances - Essential (primary) hypertension - Other ascites - Other skilled nursing (current) drug therapy - Personal history of nicotine dependence - Type 2 diabetes mellitus without complications - Unspecified cirrhosis of liver 12/10/2024 13:29 [facility] [place] TYPE: Emergency COMPLAINT: - ABDOMINAL PAIN DIAGNOSES: - Allergy status to narcotic agent - Essential (primary) hypertension - Other ascites - Other termite helper (current) drug therapy - Personal history of nicotine dependence - Type 2 diabetes mellitus without complications 12/06/2024 19:28 [facility] [place] TYPE: Emergency COMPLAINT: - ABNORMAL LAB RESULT DIAGNOSES: - Allergy status to narcotic agent - Allergy status to other drugs, medicaments and biological substances - Essential (primary) hypertension - Other skilled nursing (current) drug therapy - Personal history of [...] - Nausea with vomiting, unspecified - Other skilled nursing (current) drug therapy - Personal history of [...] (primary) hypertension - Essential (primary) hypertension - [facility] (current) use of non-steroidal anti-inflammatories (NSAID) - 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-inflammatories (NSAID) - 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 analgesic - [facility] (current) use of opiate analgesic - Other ascites - Other chronic pain - Other chronic pain - Other termite helper (current) drug therapy - Other skilled nursing (current) drug therapy - Personal history of nicotine dependence - Personal history of nicotine dependence - Portal hypertension - Portal hypertension - Type 2 diabetes mellitus with diabetic neuropathy, unspecified - Type 2 diabetes mellitus with diabetic neuropathy, unspecified - Unspecified asthma, uncomplicated - Unspecified asthma, uncomplicated - Unspecified cirrhosis of liver - Unspecified cirrhosis of liver [email or web address]
[2025-02-10 11:14] VITALS: BP 160/92
== END 2025-02-10 11:15 | disposition home or self-care (01) ==
LOC: ED 09:32
DX: K74.60 Unspecified cirrhosis of liver (principal); R18.8 Other ascites; E11.9 Type 2 diabetes mellitus without complications; I10 Essential (primary) hypertension; Z91.199 Patient's noncompliance with other medical treatment and regimen due to unspecified reason; Z87.891 Personal history of nicotine dependence; Z88.5 Allergy status to narcotic agent; Z91.048 Other nonmedicinal substance allergy status; Z79.84 Long term (current) use of oral hypoglycemic drugs; Z79.899 Other long term (current) drug therapy
CPT/HCPCS: 49083; 99284-25